=== PATIENT | female | born 1980 | race American Indian/Alaskan Native ===

== ENCOUNTER 2020-11-25 19:17 | Emergency (ER) | payer BC ==
[2020-11-25 21:47] LABS: Alanine Aminotransferase 11 units/L (7-56); Albumin 4.3 g/dL (3.9-5); Blood Urea Nitrogen 11 mg/dL (7-17); Calcium 8.4 mg/dL (8.4-10.2); Hemolysis Index 2
[2020-11-25 21:49] LABS: BUN/Creatinine Ratio 16
[2020-11-25 21:50] LABS: Basophils % (Auto) 0.8 % (0.0-1.8); Eosinophils # (Auto) 0.1 K/mm3 (0.0-0.4); Eosinophils % (Auto) 2.5 % (0.0-4.3); Hemoglobin 11.1 gm/dl (10.1-14.3); Lymphocytes # (Auto) 2.3 K/mm3 (1.2-5.4); Lymphocytes % (Auto) 41.7 % (13.4-35.0); Mean Corpuscular HGB Conc 33 % (30-34); Mean Corpuscular Volume 84 fl (79-97); Monocytes # (Auto) 0.4 K/mm3 (0.0-0.8); Monocytes % (Auto) 7.1 % (0.0-7.3); Platelet Count 257 K/mm3 (140-440); Red Blood Count 4.04 M/mm3 (3.65-5.03); Red Cell Distribution Width 15.9 % (13.2-15.2)
[2020-11-25 22:10] LABS: Bilirubin,Urine NEG (Negative); Blood,Urine NEG (Negative); Color,Urine Yellow (Yellow); Mucus,Urine FEW /HPF; Protein,Urine <15 mg/dL mg/dL (Negative); Urobilinogen,Urine < 2.0 mg/dL (<2.0); WBC,Urine < 1.0 /HPF (0.0-6.0)
[2020-11-26] MEDS ORDERED: KETOROLAC 30 MG/1 ML INJ IM ONE (04:14)
[2020-11-26] MEDS ORDERED: traMADol 50 MG TAB PO ONE (04:14)
[2020-11-26 04:45] VITALS: BP 149/77
--- NOTE | 2020-11-26 04:48 | Emergency Department Report ---
ED Female HPI - General Chief complaint: Abdominal Pain Stated complaint: OVARIAN CYST/LOWER STOMACH PAIN Time Seen by Provider: 11/26/20 03:54 Source: patient Mode of arrival: Ambulatory Limitations: No Limitations - History of Present Illness Initial comments: 40-year-old -[place] female presents to the emergency room for acute on chronic right-sided pelvic pain. Patient states that she has had this for several years. Patient reports that she was seen here on last year and was told that she had ovarian cysts. 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 Patient is currently on no control at this time. 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 Patient states she has been taking ibuprofen 800 mg which she reports is not helping any longer. She states that she had tramadol in the past and it had helped. Last menstrual period was 11/07/2020. She states that her periods are regular. She does admit that her pain will often go from right to left. MD Complaint: pelvic pain Onset/Timin -: year(s) Location: RLQ Radiation: non-radiating Severity: moderate Severity scale (0 -10): 9 Quality: sharp Consistency: intermittent Improves with: none Worsens with: none Are you Now?: No Last Menstrual Period: 11/07/20 EDC: 08/14/21 Associated Symptoms: denies other symptoms - Related Data Sexually active: Yes Previous Rx's Medication Instructions Recorded Last Taken Type HYDROcodone/APAP 5-325 [[place] 1 - 2 each PO Q4HR PRN #30 tablet 12/06/15 Unknown Rx 5/325] traMADoL [Ultram 50 MG tab] 50 mg PO Q6HR PRN #12 tablet 11/26/20 Unknown Rx Allergies Allergy/AdvReac Type Severity Reaction Status Date / Time Penicillins AdvReac Rash Verified 12/05/15 10:36 ED Review of Systems ROS: Stated complaint: OVARIAN CYST/LOWER STOMACH PAIN Other details as noted in HPI Comment: All other systems reviewed and negative ED Past Medical Hx - Past Medical History Previous Medical History?: Yes Hx Hypertension: No Hx Renal Disease: No Hx Seizures: No Hx Asthma: No Additional medical history: ovarain cyst. hernia - Surgical History Past Surgical History?: Yes Additional Surgical History: - Social History Smoking Status: Never Smoker Substance Use Type: None - Medications Home Medications: Home Medications Medication Instructions Recorded Confirmed Last Taken Type HYDROcodone/APAP 5-325 [[place] 1 - 2 each PO Q4HR PRN #30 tablet 12/06/15 Unknown Rx 5/325] traMADoL [Ultram 50 MG tab] 50 mg PO Q6HR PRN #12 tablet 11/26/20 Unknown Rx ED Physical Exam - General Limitations: No Limitations General appearance: alert, in no apparent distress - Head Head exam: Present: atraumatic, normocephalic - Eye Eye exam: Present: normal appearance - ENT ENT exam: Present: normal exam - Neck Neck exam: Present: normal inspection, full ROM - Respiratory Respiratory exam: Present: normal lung sounds bilaterally. Absent: respiratory distress, accessory muscle use - Cardiovascular Cardiovascular Exam: Present: regular rate - GI/Abdominal GI/Abdominal exam: Present: soft, tenderness (Right lower quadrant), normal bowel sounds. Absent: distended - Extremities Exam Extremities exam: Present: normal inspection, full ROM - Back Exam Back exam: Present: normal inspection, full ROM - Neurological Exam Neurological exam: Present: alert, oriented X3, normal gait - Psychiatric Psychiatric exam: Present: normal affect, normal mood - Skin Skin exam: Present: warm, dry, intact, normal color. Absent: rash ED Course Vital Signs 11/25/20 21:02 Temperature 98.5 F Pulse Rate 54 L Respiratory 16 Rate Blood Pressure 149/77 O2 Sat by Pulse 98 Oximetry ED Medical Decision Making - Lab Data Result diagrams: 11/25/20 21:04 11/25/20 21:04 - Medical Decision Making 40-year-old -[place] female presents to the emergency room for acute on chronic right-sided pelvic pain. Patient states that she has had this for several years. Patient reports that she was seen here on last year and was told that she had ovarian cysts. 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 Patient is currently on no control at this time. 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 Patient states she has been taking ibuprofen 800 mg which she reports is not helping any longer. She states that she had tramadol in the past and it had helped. Last menstrual period was 11/07/2020. She states that her periods are regular. She does admit that her pain will often go from right to left. Ultrasound pelvic has been ordered. Toradol 30 mg IM has been ordered. Critical care attestation.: If time is entered above; I have spent that time in minutes in the direct care of this critically ill patient, excluding procedure time. ED Disposition Clinical Impression: Ovarian cyst, right Disposition: DC-01 TO HOME OR SELFCARE Is pt being admited?: No Does the pt Need Aspirin: No Condition: Stable Instructions: Abdominal Pain (ED), Ovarian Cyst, [id number] Additional Instructions: Ultrasound shows a cyst on the right ovary. 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 Prescriptions: traMADoL [Ultram 50 MG tab] 50 mg PO Q6HR PRN #12 tablet PRN Reason: Pain , Severe (7-10) Referrals: PRIMARY CARE, [Primary Care Provider] - 3-5 Days [facility] [Provider Group] - 3-5 Days [facility] [Provider Group] - 3-5 Days [facility] [Provider Group] - 3-5 Days Forms: Work/School Release Form(ED)
--- NOTE | 2020-11-26 06:26 | Ultrasound Report ---
ULTRASOUND PELVIS, COMPLETE INDICATION: Right-sided pelvic pain COMPARISON: No relevant prior imaging study available. TECHNIQUE: Transabdominal imaging was performed. FINDINGS: Uterus: No significant abnormality. Endometrial echo complex measures 14-15 mm. Right ovary: 2.9 cm cyst. Flow is seen to the right ovary. Left ovary: No significant abnormality. Flow is seen to the left ovary. Additional findings: Trace free fluid in the cul-de-sac. IMPRESSION: 1. The endometrial echo complex at the upper limits of normal for a premenopausal patient. Follow-up ultrasound at a different stage of menstrual cycle is recommended. 2. 2.9 cm right ovarian cyst. Signer Name: Vijay Gunter MD Signed: 11/26/2020 6:21 AM Workstation Name: [id number]
== END 2020-11-26 06:08 | disposition home or self-care (01) ==
LOC: ED 19:17
DX: N83.201 Unspecified ovarian cyst, right side (principal); Z98.890 Other specified postprocedural states; Z79.899 Other long term (current) drug therapy; Z88.0 Allergy status to penicillin
CPT/HCPCS: 36415; 80053; 81001; 84703; 85025; 93975; 96372; 99284; J1885